=== PATIENT | male | born 1945 | race Caucasian/White ===

== ENCOUNTER 2017-06-05 12:08 | Outpatient (CLI) | payer MEDICARE, OTHER ==
--- NOTE | 2017-06-05 16:41 | MRI Report ---
EXAM: LEFT KNEE MRI WITHOUT CONTRAST EXAM DATE: 06/05/2017 12:59 PM. CLINICAL HISTORY: Chronic and refractory left knee pain and instability. COMPARISON: None. TECHNIQUE: Multiplanar, multisequence T1-weighted and fluid-sensitive sequences of the knee without c ontrast. Other: None. FINDINGS: Bones and Articular Cartilage: Grade 4 chondromalacia, slight cortical irregularity, subchondral neida ow edema at the medial femoral condyle and medial tibial plateau. There is an approximately 0.5 cm me dial to lateral by 1.7 cm AP partial-thickness articular cartilage defect at the central to posterior aspect of the lateral femoral condyle. There is a focal full-thickness articular cartilage fissure a t the posterior aspect of the lateral tibial plateau. Full-thickness articular cartilage fissure at t he posterior superior aspect of the lateral femoral condyle. No patellar subluxation. No acute fractu re or bone lesions. Enthesophytes at the anterosuperior and anteroinferior aspects of the patella. Medial Meniscus: Flap tear with horizontal oblique component at the posterior horn and body. Degenera tive free edge fraying at the posterior horn and body. The medial meniscal body is partially extruded medially from the medial joint compartment. Lateral Meniscus: The lateral meniscus is intact. Cruciate Ligaments: The anterior and posterior cruciate ligaments are intact. Collateral Ligaments: The medial collateral and lateral collateral ligamentous structures are intact. Tendons: The quadriceps, patellar, semimembranosus, and popliteus tendons are unremarkable. Musculature: No edema or fatty atrophy. Other: Small to moderate sized joint effusion. Tiny popliteal cyst. No loose bodies. The medial and lateral retinacula are intact. The subcutaneous tissues and fat pads are unremarkable. IMPRESSION: 1. Osteoarthritis medial and lateral compartments which is most severe at the medial compartment. 2. Flap tear with horizontal oblique component at the posterior horn and body. The medial meniscal iam dy is partially extruded medially from the medial joint compartment. 3. No ligament injury. 4. Small to moderate-sized joint effusion. Tiny popliteal cyst. RADIA MUSCULOSKELETAL RADIOLOGY SECTION Referring Provider Line: [phone] SITE ID: [id number]
== END 2017-06-05 12:09 | disposition home or self-care (01) ==
LOC: DI 12:08
DX: M17.12 Unilateral primary osteoarthritis, left knee (principal); S83.242A Other tear of medial meniscus, current injury, left knee, initial encounter; M71.22 Synovial cyst of popliteal space [Baker], left knee; M25.462 Effusion, left knee

== ENCOUNTER 2023-09-25 08:10 | Outpatient (CLI) | payer MEDICARE, OTHER ==
--- NOTE | 2023-09-25 09:02 | Sleep Patient Instructions ---
Sleep Center Visit Summary - Patient Visit Information Reason for Visit: Initial consult for evaluation of sleep disordered breathing and other sleep issues. - Patient Instructions Instructions Attached: Sleep Study Additional Instructions: You will be completing a sleep study, either an in-lab polysomnography (PSG) or home sleep study (HST). You will follow-up in the sleep care office after the sleep study is completed to hear the results and talk about therapy, if needed. You will be called by our office staff to schedule this appointment, but you may contact us with any questions. - Clinic Information Contact: [facility] [address] [place] [address] [email or web address] T: [phone]
--- NOTE | 2023-09-25 09:06 | SLEEP CARE CONSULTATION ---
Information from patient questionnaire entered by Chrissy Summers. I have reviewed and concur with the information entered by Chrissy Summers. This document represents the service I personally performed and the decisions made by me, Astrid Pratt ARNP. History of Present Illness Service Date and Time: 09/25/2023 0810 Reason for Visit: New patient Accompanied by: Spouse (Neetu) Chief Complaint: reports: Unrefreshed sleep, Excessive daytime sleepiness, Observed pauses in breathing, Fatigue Date of Onset: 16+YRS Usual bedtime: 2200 Time it takes to fall asleep: 10MINS Snores at night: Yes Observed to quit breathing while asleep: Yes Sleeps alone due to snoring: No Number of times waking at night: 2-4 Reasons for waking at night: reports: Bathroom. denies: Choking, Snoring, Gasping for air Toss, Turn, or Twitch while sleeping: Yes Recalls having dreams: Yes Usually gets out of bed at: 0630 Feels refreshed in the morning: No Morning headache: No Sleepy or fatigued during the day: Yes Ever fallen asleep while driving: No (has vertigo and does not drive much) Takes day naps: Yes (1-3 naps daily; last 15 mins to 1 hour) Dreams during day naps: Yes Prior sleep studies: No Additional HPI information: I had the pleasure of seeing FAHAD DO today regarding the possibility of him having a sleep disorder. His current complaints are excessive daytime sl eepiness, fatigue, observed pauses in breathing and unrefreshed sleep. He is accompanied by his today. He says his heart doctor sent him here for evaluation. He has been having some hypotension and low heart rate. He wakes up frequently to use the bathroom. He also has to take frequent naps during the day due to daytime fatigue. He also had Covid in early July 2023. His has seen him stop breathing at night and says he snores. She also hears "whistling" noises like he is struggling to breathe but this does not wake him up. - Parasomnia Symptoms Ever been unable to move upon waking from sleep: No Walks in sleep: No Talks in sleep: No Ever acted out dreams in sleep: No Ever felt weak in the knees when startled or emotional: No Bothered by creepy, crawly, restless sensations in legs: No Problems with memory or concentration: Yes (always prob with concentration) Subjective Initial [place] Sleepiness Scale score: 14 (09/25/23) Past Medical History Past Medical History: reports: Hypertension, Arthritis, Impotence, Other (hiatal hernia; hx tongue cancer, deviated nasal septum) Social History The patient's occupation is a RE. Patient is and lives in [place]. Have you smoked in the past 12 months: No Alcohol use: No Caffeine use: Yes Caffeine amount and frequency: 1-2 CUPS DAILY Family History Family history of sleep disordered breathing: Yes Family Hx Sleep Apnea: Sibling: Sleep apnea - Treated (KIDS) Allergies and Home Medications Known drug allergies: No Drug allergies reviewed: Yes Home medication list reviewed: Yes (as listed) Allergy and home medication list: Allergies No Known Drug Allergies Allergy (Verified 09/25/23 08:27) Home Medications Multivitamin See Rx Instructions .ROUTE .COMPLEX 09/25/23 [History] Turmeric See Rx Instructions .ROUTE .COMPLEX 09/25/23 [History] hydroCHLOROthiazide [Hydrochlorothiazide] See Rx Instructions .ROUTE .COMPLEX 09/25/23 [History] Review of Systems Cardiovascular: reports: high blood pressure Respiratory: reports: sputum production Gastrointestinal: reports: difficulty swallowing, diarrhea Urinary: reports: frequency, impotence Ear/Nose/Throat: reports: nasal congestion, sinus problems, dry mouth/throat, tonsillectomy, other (tongue cancer with radiation/chemo after surgery) Endocrine: reports: sluggishness, too hot or cold Musculoskeletal: reports: joint pain, muscle pain or cramping Immunologic: reports: sneezing, allergies to food or environment Physical Exam Vital signs obtained and entered by: CHRISSY Schaffer MA Blood Pressure: 115/71 (RIGHT ARM) Cuff size: regular Heart Rate: 48 O2 Saturation: 98 Height: 5 ft 8.5 in Weight: 192 lb 3.2 oz Body Mass Index: 28.8 BMI Classification: Overweight Neck circumference: 15 Mouth and throat: narrow oropharynx Soft palate: long Hard palate: normal Uvula: normal Uvula visualization: 50% Mallampati Class II Tongue: enlarged in size with teeth guevara on lateral edges Tonsils: absent bilaterally Neck: normal w/o lymphadenopathy or thyromegaly Heart: regular rate and rhythm Lungs: clear bilaterally Impression and Plan 1. Suspected Obstructive Sleep Apnea-Hypopnea Syndrome, as suggested by a history of irregular snoring, observed cessation of breath while asleep, unrefreshed sleep, cognitive impairment, and excessive daytime sleepiness. Narrow oropharynx and obesity are common predisposing factors for obstructive sleep apnea-hypopnea syndrome. I recommend proceeding to polysomnography to confirm the diagnosis and to assess severity. If the patient has significant sleep disordered breathing, a manual CPAP titration study will also be performed to find the optimal treatment pressure. I informed the patient of what the sleep studies involve and after some discussion, obtained agreement to proceed. The pathophysiology of obstructive sleep apnea-hypopnea syndrome was discussed with the patient and health risks of cardiovascular and cerebrovascular disease if not treated. Risks of drowsy driving discussed in detail and patient advised to avoid long distance driving and to pan puller at the first sign of drowsiness. Patient agreed to plan. * Schedule polysomnography * Avoid long distance driving or driving when feeling sleepy. * Avoid alcohol, sedative and muscle relaxant around bedtime. * Attempt to lose weight. * Review instructions provided by trained office staff on how to prepare for the sleep study. * Return for follow-up after sleep study completed. Counseling Topics: Weight loss health impact Plan: PSG and follow up Visit Type: In Office Time Spent with Patient (minutes): 30 Provider Statement: I spent 100% of the Face to Face Visit with the patient with greater than 50% spent counseling the patient and coordination of care.
[2023-09-25 09:10] VITALS: BP 115/71; O2SAT 98
== END 2023-09-25 08:11 | disposition home or self-care (01) ==
LOC: SC 08:10
PROVIDERS: ATTEND Nurse Practitioner Family
DX: G47.10 Hypersomnia, unspecified (principal); G47.8 Other sleep disorders; R06.81 Apnea, not elsewhere classified; R53.83 Other fatigue; R06.83 Snoring; I10 Essential (primary) hypertension; E66.3 Overweight; Z68.28 Body mass index [BMI] 28.0-28.9, adult
CPT/HCPCS: 99203; G0463; 99212

== ENCOUNTER 2023-10-17 19:26 | Outpatient (CLI) | payer MEDICARE, OTHER | END 2023-10-17 19:27 | disposition home or self-care (01) | LOC: SC 19:26 | PROVIDERS: ATTEND Nurse Practitioner Family | DX: G47.33 Obstructive sleep apnea (adult) (pediatric) (principal); E66.3 Overweight; Z68.28 Body mass index [BMI] 28.0-28.9, adult | CPT/HCPCS: 95810 ==

== ENCOUNTER 2023-11-19 08:38 | Outpatient (CLI) | payer MEDICARE, OTHER ==
--- NOTE | 2023-11-19 09:31 | Sleep Patient Instructions ---
Sleep Center Visit Summary - Patient Visit Information Reason for Visit: Sleep study follow-up - Patient Instructions Additional Instructions: You are being started on CPAP therapy with pressure setting at 4-15 cmH2O. You will need to call the sleep care office to set up your follow up once you have your CPAP machine to check compliance and response to therapy at that time. You may call the office with any concerns about pressure feeling too low or too much for adjustment, if needed. You should contact DME supplier for any questions or concerns about mask or equipment. Please call office to schedule a follow up appointment in the sleep care office one month after obtaining new device. - Clinic Information Contact: [facility] [address] [place] [address] [email or web address] T: [phone]
--- NOTE | 2023-11-19 09:35 | SLEEP CARE CONSULTATION ---
Information from patient questionnaire entered by Chrissy Summers. I have reviewed and concur with the information entered by Chrissy Summers. This document represents the service I personally performed and the decisions made by , Astrid Pratt ARNP. History of Present Illness Service Date and Time: 11/19/2023 0838 Accompanied by: Spouse (Neetu Pimentel) Initial [place] Sleepiness Scale score: 14 Current [place] Sleepiness Scale score: 17 (11/19/23) Additional HPI information: FAHAD DO returns for follow up and results of the recently performed polysomnography. The sleep study done on 10/17/23 showed moderate obstructive sleep apnea with an average AHI of 24.6 and pasquale oxygen saturation of 71%. I explained the pathophysiology behind obstructive sleep apnea. We then spent quite a bit of time discussing different treatment options. For mild obstructive sleep apnea, surgery and oral appliance are alternatives to nasal CPAP therapy but in moderate or severe cases, nasal CPAP is the most effective a nd reliable treatment. Because apnea is primarily in supine position, then positional management therapy could be effective. Methods discussed such as positioning with pillows, using a T-shirt with tennis balls in the back or commercial products that have a pillow format on back to prevent supine sleep. I reviewed the impact of weight changes on sleep apnea and strongly recommended losing weight. After some discussion, the patient opted to go with the nasal CPAP therapy. Nasal autoCPAP set at 4-15 cmH20 will be ordered with rationale explained. A manual titration study will be ordered if unable to find optimal pressure with office adjustments. I explained how CPAP machine works and what to expect when using the machine. Using CPAP every night in order to get used to it was emphasized. Patient advised to put CPAP mask on before getting into bed so as not to fall asleep without CPAP. To assist acclimation to CPAP use, it could also be used for a short time during day while reading or watching TV. The patient was instructed to call the CPAP supplier to discuss any mechanical problem that may occur. If the mask given is uncomfortable or is difficult to keep on through the night even with adjustment, contact the CPAP supplier as many will replace with another mask style if notified before 30 days. If snoring or perceives is not getting enough air or too much air from the machine, notify this office. Patient does not drink alcohol. Patient was cautioned about risks of drowsy driving until sleepiness symptoms resolve. Patient denies drowsy driving. Sleep Study - Results Type of Sleep Study: Polysomnography (COMPLETED 10/17/23) Prior sleep studies: No Polysomnography/Home Sleep Study results: IMPRESSION: The quality of the study is good. The patient had slightly reduced sleep efficiency due to prolonged awakening in the middle of the night. The sleep architecture was abnormal for sleep fragmentation and reduced amount of time spent in slow wave sleep (N3). Respiratory monitoring showed moderate obstructive sleep apneahypopnea (AHI = 24.6) associated with frequent arousals, oxyhemoglobin desaturation and moderate hypoxia (pasquale oxygen saturation of 71%). The respiratory events occurred almost exclusively during supine sleep (supine AHI = 36.8; non-supine = 1.05). Snore was moderate in intensity. There was no significant periodic leg movement of sleep. Cardiac rhythm was normal sinus rhythm without significant arrhythmia. No abnormal behavior (parasomnia) observed during the night. Allergies and Home Medications Known drug allergies: No Drug allergies reviewed: Yes Home medication list reviewed: Yes (no changes) Allergy and home medication list: Allergies No Known Drug Allergies Allergy Review of Systems Review of systems same as previous: Yes (NO CHANGE) Physical Exam Vital signs obtained and entered by: CHRISSY Schaffer MA Blood Pressure: 150/80 (RIGHT ARM) Cuff size: regular Heart Rate: 45 O2 Saturation: 97 Height: 5 ft 8.5 in Weight: 190 lb 9.6 oz Body Mass Index: 28.5 BMI Classification: Overweight Impression and Plan 1. Obstructive Sleep Apnea-Hypopnea Syndrome, moderate, with lowest oxygen saturation of 71%. Obviously this is the cause of the patients symptoms of unr efreshed sleep, and excessive daytime sleepiness. Positive pressure therapy could benefit hypertension. As mentioned above, the patient will be started on nasal autoCPAP therapy with pressure set at 4-15 cmH2O. A manual titration study will be completed if unable to find optimal treatment pressure with office adjustments. Compliance guidelines also reviewed. A copy of compliance guidelines will be given for reference at check out. Because the apnea is more severe supine, I instructed to avoid sleeping supine using pillow positioning until able to start CPAP use. 2. Hypoxemia, moderate, with a pasquale oxygen saturation of 71% and 27.9 minutes spent under 90%. The baseline oxygen saturation was normal with an average oxygen saturation of 93%. 3. Overweight, unspecified. Currently patients BMI is 28.5. Obesity increases the risk of apnea, CPAP pressure requirements and overall health risks especially cardiovascular and diabetes. Thus patient is advised to lose weight. * Nasal auto CPAP therapy, pressure at 4-15 cmH2O. * Attempt to lose weight. * Avoid alcohol consumption near bedtime. * Avoid supine sleep until using CPAP. * The patient is again cautioned about driving until sleepiness completely resolves. * Return one month after CPAP obtained. I will assess response to therapy and compliance at that time. Counseling Topics: Sleeping position, Weight loss health impact Prescriptions: Auto CPAP Plan: start cpap and compliance followup Visit Type: In Office Time Spent with Patient (minutes): 21 Provider Statement: I spent 100% of the Face to Face Visit with the patient with greater than 50% spent counseling the patient and coordination of care.
[2023-11-19 09:45] VITALS: BP 150/80; O2SAT 97
== END 2023-11-19 08:39 | disposition home or self-care (01) ==
LOC: SC 08:38
PROVIDERS: ATTEND Nurse Practitioner Family
DX: G47.33 Obstructive sleep apnea (adult) (pediatric) (principal); E66.3 Overweight; Z68.28 Body mass index [BMI] 28.0-28.9, adult
CPT/HCPCS: 99213; G0463; 99212

== ENCOUNTER 2024-01-20 09:00 | Outpatient (CLI) | payer MEDICARE, OTHER ==
--- NOTE | 2024-01-20 09:42 | Sleep Patient Instructions ---
Sleep Center Visit Summary - Patient Visit Information Reason for Visit: First compliance follow-up for PAP therapy - Patient Instructions Additional Instructions: You were here for follow up of CPAP therapy. You will be continued on CPAP therapy with pressure at 10-12 cmH2O. Please let us know if the pressure change is uncomfortable and we can make further adjustments of the pressure. You should follow up with sleep care in 1-2 months. You may contact us sooner for any questions or concerns. - Clinic Information Contact: [facility] [address] [place] [address] [email or web address] T: [phone]
--- NOTE | 2024-01-20 09:47 | SLEEP CARE CONSULTATION ---
Information from patient questionnaire entered by Isabella Summers. I have reviewed and concur with the information entered by Isabella Summers. This document represents the service I personally performed and the decisions made by me, Astrid Pratt ARNP. History of Present Illness Service Date and Time: 01/20/2024 0900 Previous diagnosis: Moderate, Obstructive Sleep Apnea-Hypopnea Syndrome AHI: 24.6 (10/17/23) Reason for follow up: first compliance Accompanied by: Spouse Equipment type: CPAP (RESMED Airsense 11, S/U 12/05/23) Equipment obtained from: Other ([facility]) Mask style: Nasal pillows Mask brand: Resmed (P10) Backup mask available: No (will keep old mask when replaced) Last cushion change: 1 month Prior sleep studies: No Type of Sleep Study: Polysomnography (COMPLETED 10/17/23) HPI additional information: FAHAD DO was diagnosed to have moderate, AHI 24.6, obstructive sleep apnea-hypopnea syndrome and returned today for CPAP therapy first compliance f ollow-up. Sleep Study - Results Type of Sleep Study: Polysomnography (COMPLETED 10/17/23) Prior sleep studies: No CPAP Compliance Data - Data Reviewed with Patient Average duration of nightly device use: 9 HRS 24 MINS Compliance rate %: 100 (12/05/23-01/03/24; 30/ days used) Current pressure setting (cmH2O): 4-15 (median 7, avg 10, max 11.8) Average residual AHI: 2.3 Central apnea: 0.7 Obstructive apnea: 0.7 Hypopnea: 0.6 Average large leak: 8.7 L/min Subjective Patient concerns: reports: dry mouth, nose, throat (hx of radiation treatment; chronic dryness). denies: aerophagia, mask discomfort, air blowing in eyes, mas k leak noise, condensation in mask/hose, nasal congestion, epistaxis Observed to snore while using device: Yes (little bit) Current pressure setting perceived as: comfortable On therapy, patient: reports: sleeping better, awakening more refreshed, being more awake and alert during the day, more rested overall. denies: drowsiness while driving Initial [place] Sleepiness Scale score: 14 Current [place] Sleepiness Scale score: 11 (01/20/24) Allergies and Home Medications Known drug allergies: No Drug allergies reviewed: Yes Home medication list reviewed: Yes (no changes) Allergy and home medication list: Allergies No Known Drug Allergies Allergy (Verified 01/20/24 09:03) Review of Systems Review of systems same as previous: No (NO CHANGE) Physical Exam Vital signs obtained and entered by: ISABELLA Schaffer MA Blood Pressure: 132/72 (RIGHT ARM) Cuff size: regular Heart Rate: 46 O2 Saturation: 99 Height: 5 ft 8.5 in Weight: 197 lb 3.2 oz Body Mass Index: 29.5 BMI Classification: Overweight Impression and Plan 1. Obstructive Sleep Apnea-Hypopnea Syndrome, moderate, with good treatment compliance and good apnea control. On CPAP therapy, the patient has better sleep quality and is more rested overall. He has significant improvement of his sleep apnea and is comfortable with CPAP use. He does have a little bit of dry mouth but states this is not a new issue. He has a history of tongue cancer treated through radiation and chronic dry mouth. The patients pressure will be changed to autoCPAP 10-12 cmH20 to reflect pressure being used. Patient advised to contact me if pressure change is uncomfortable so that it can be adjusted. Goals for apnea control discussed. Patient's apnea severity and rationale for treatment to reduce apnea, improve sleep quality and reduce cardiovascular and cerebrovascular events was reviewed. I also reviewed the benefit of consistent device use of CPAP for hypertension. 2. Overweight, unspecified. Currently patients BMI is 29.5. Obesity increases the risk of apnea, CPAP pressure requirements and overall health risks especially cardiovascular and diabetes. Thus patient is advised to lose weight. * Change auto CPAP pressure to 10-12 cmH2O * Notify me if snoring with mask or feeling that the pressure is too much or too little * Attempt to lose weight * Call this office if any problems using CPAP * Return for follow up in 1-2 months, or sooner if concerns arise Adjust device pressure to (cmH2O): 10-12 Counseling Topics: Weight loss health impact Follow up with Sleep Care in: 1-2 months Visit Type: In Office Time Spent with Patient (minutes): 21 Provider Statement: I spent 100% of the Face to Face Visit with the patient with greater than 50% spent counseling the patient and coordination of care.
[2024-01-20 09:49] VITALS: BP 132/72; O2SAT 99
== END 2024-01-20 09:01 | disposition home or self-care (01) ==
LOC: SC 09:00
PROVIDERS: ATTEND Nurse Practitioner Family
DX: G47.33 Obstructive sleep apnea (adult) (pediatric) (principal); E66.3 Overweight; Z68.29 Body mass index [BMI] 29.0-29.9, adult
CPT/HCPCS: 99213; G0463; 99212